=== PATIENT | female | born 1955 | race Caucasian/White ===

== ENCOUNTER → 2016-06-24 | Day surgery (SDC) | payer BC ==
[~2016-06-24] MED LIST: ASPIRIN81 M2 PO; ATENOLOL PO; CALCIUM 600 +1 EAC9 PO; LOVASTATIN20 M1 PO; MULTI VITAMIN1 EACH PO
--- NOTE | ~2016-06-24 | OR ---
Unit #: [id number] #: [id number] Patient: MARY AGUILERA [id number] [address] [place], [place] [address] [id number] O MR#: [id number] NAME: MARY AGUILERA ROOM: Date of Procedure: 06/24/2016 Admission Date: 06/24/2016 Surgeon: Milton Flores M.D. : 1955 Attending Physician: Milton Flores M.D. Primary Care Physician: Adilson Dunne M.D. OPERATIVE REPORT PREOPERATIVE DIAGNOSIS Colorectal cancer screening in an average-risk patient. PROCEDURES PERFORMED Colonoscopy and polypectomy. POSTOPERATIVE DIAGNOSES 1. The patient had 2 sessile polyps located adjacent to each other in the proximal ascending colon. These were 5 and 8 mm each. Both were removed using snare polypectomy. They were retrieved and sent for histology. 2. Rest of the examination up to cecum and terminal ileum was normal. The quality of the prep was excellent. RECOMMENDATIONS Follow up results of polyp histology. Consider repeat colonoscopy in 5 years. SEDATION USED MAC. DESCRIPTION OF PROCEDURE Following detailed explanation of potential risks and complications of a colonoscopy, namely perforation, bleeding, and complications related to sedation, the patient was brought to GI lab and laid in the left lateral decubitus position. A digital rectal examination was performed, which was normal. Lubricated tip of the Olympus video colonoscope was inserted through the anus and advanced under direct vision. The scope was advanced and passed up to sigmoid into descending colon. No diverticula were seen in this area. The scope tip was then navigated all the way up to cecum with visualization of the ileocecal valve and the appendiceal orifice. Preparation was excellent with good visualization and photodocumentation was obtained. Last several inches of the terminal ileum also visualized after intubation of the ileocecal valve and appeared normal. Successive segments of the colonic mucosa were examined upon withdrawal. The patient was noted to have 2 sessile polyps, 5 and 8 mm each, present in the proximal ascending colon just above the ileocecal valve. These were sessile adenomatous. Both were removed using snare polypectomy. They were retrieved and sent for histology. No additional polyps noted. The patient did not have any diverticulosis nor any hemorrhoids. The scope was then withdrawn. The patient returned to recovery area. She tolerated the procedure without any postprocedure complications. Unit #: [id number] #: [id number] Patient: MARY AGUILERA Dictated by.Devyn Johnston/mario TD: 06/25/2016 01:45 JOB #: [id number] OPERATIVE REPORT Page 1 of 1 X Milton Flores MD PROCEDURE OPERATIVE NOTE
== END | disposition home or self-care (01) ==
LOC: COPS 08:44
PROVIDERS: Internal Medicine Gastroenterology
PROC: 0DBK8ZZ Excision of Ascending Colon, Via Natural or Artificial Opening Endoscopic (ICD-10-PCS; principal; 2016-06-24 10:00)
DX: Z12.11 Encounter for screening for malignant neoplasm of colon (principal); D12.2 Benign neoplasm of ascending colon
CPT/HCPCS: 88305